=== PATIENT | female | born 1950 | race Caucasian/White ===

== ENCOUNTER → 2017-05-11 | Outpatient (CLI) | payer MEDICARE, OTHER ==
[~2017-05-11] MED LIST: ALBU90OI INH; ALBU90OI6 INH; AMIT50 PO; AZIT250 PO; Acetaminophen-1 EAC1 PO; Aerochamber1 EACH MC; CITA20 PO; CYCL10 PO; DIAZ2 PO; DIAZ5 PO; ESCI10; ESCI10 PO; ESCI20 PO; ESTR2 PO; FAMO20 PO; GUAI600T33 PO; HYDACE5 PO; HYDACE5325 PO; HYDR1TAB94 PO; IBUP600; IBUP800 PO; LEVO-T100 MCG; LEVO750 PO; LEVSOD100; LEVSOD150 PO; LORA1 PO; MECL25 PO; METO10 PO; NAPR375 PO; NAPR500 PO; ONDA4 PO; ONDA4ODT MM; PROM25 PO; Percocet 5-3251 EACH PO; Prednisone20 MG PO; QUET25 PO; RXHYD5325 PO; RXHYDACE PO; RXONDA4ODT MM; SUCR1 PO; Vibramycin100 MG PO; Zithromax250 MG PO; Zofran Odt4 MG SL
== END ==
LOC: LAB EV 13:08 → LAB SHORT 13:08
DX: S21.201A Unspecified open wound of right back wall of thorax without penetration into thoracic cavity, initial encounter (principal)
CPT/HCPCS: 87070; 87075; 87077; 87147; 87186; 87205

== ENCOUNTER 2017-06-24 16:52 | Emergency (ER) | payer MEDICARE, OTHER ==
[~2017-06-24] VITALS: Ht 165.1 cm; Wt 72.6 kg
[2017-06-24] MEDS ORDERED: TRAZ100 (17:03)
[2017-06-24] MEDS ORDERED: Norco 5-325 Ta1 EACH PO (18:12)
[2017-06-24] MEDS ORDERED: CRUTCH2 XX (18:12)
== END 2017-06-24 18:34 | disposition home or self-care (01) ==
LOC: ER 16:52
DX: S90.31XA Contusion of right foot, initial encounter (principal); I10 Essential (primary) hypertension; J44.9 Chronic obstructive pulmonary disease, unspecified; E03.9 Hypothyroidism, unspecified; F32.9 Major depressive disorder, single episode, unspecified; F17.210 Nicotine dependence, cigarettes, uncomplicated; Z79.899 Other long term (current) drug therapy; W20.8XXA Other cause of strike by thrown, projected or falling object, initial encounter
CPT/HCPCS: 73630; 96374; 99284; J3010

== ENCOUNTER 2020-01-03 09:58 | Emergency (ER) | payer MEDICARE, OTHER ==
[~2020-01-03] VITALS: Ht 165.1 cm; Wt 77.1 kg
[~2020-01-03 09:58] MED LIST changes: +CRUTCH2 XX; +Norco 5-325 Ta1 EACH PO; +TRAZ100
== END 2020-01-03 13:07 | disposition home or self-care (01) ==
LOC: ER 09:58
DX: T84.84XA Pain due to internal orthopedic prosthetic devices, implants and grafts, initial encounter (principal); F17.210 Nicotine dependence, cigarettes, uncomplicated; E03.9 Hypothyroidism, unspecified; F32.9 Major depressive disorder, single episode, unspecified; Z79.899 Other long term (current) drug therapy
CPT/HCPCS: 72020; 99283-25

== ENCOUNTER 2022-01-11 08:55 | Day surgery (SDC) | payer MEDICARE, OTHER ==
[~2022-01-11] VITALS: Ht 165.1 cm; Wt 68.0 kg
[2022-01-11] MEDS ORDERED: DRAMAMINE25 M3 PO (11:03)
[2022-01-11] MEDS ORDERED: METOPROLOL TART25 MG PO (11:04)
[2022-01-11] MEDS ORDERED: DICLOFENAC SOD100 G1 TOP (11:04)
[2022-01-11] MEDS ORDERED: MELO7.5 PO (11:04)
[2022-01-11] MEDS ORDERED: Vitamin D1000 UNI1 PO (11:05)
[2022-01-11] MEDS ORDERED: Hydroxychloroq200 MG PO (11:05)
--- NOTE | 2022-01-11 11:12 | NUR ---
Ambulatory in Day Surgery. Patient confirms NPO status and agrees with scheduled surgery. Pre-Op teaching done. Pt verbalizes understanding. Patient states colon prep results clear. Patient States Post-Procedure ride home has been arranged. HEART RATE OF 42-48, CONSISTENTLY AROUND 44BPM. HYPERTENSIVE. PT DENIES ANY DISCOMFORT OR SYMPTOMS; STS BP HAS BEEN HIGH & IS PLANNING TO MAKE AN APPOINTMENT WITH HER TODDLER NANNY. DR. ENCARNACION NOTIFIED.
--- NOTE | 2022-01-11 11:25 | NUR ---
01/11/22 1[address] [facility] HISTORY, CHART, MEDICATIONS AND ALLERGIES REVIEWED BEFORE START OF PROCEDURE. PATIENT CONFIRMS NPO STATUS AND AGREES WITH SCHEDULED PROCEDURE. 3-LEAD EKG REVIEWED WITH PHYSICIAN PRIOR TO START OF PROCEDURE. MONITOR INTACT WITH CONTINUOUS PULSE OXIMETRY,CAPNOGRAPHY, 3-LEAD EKG, INTERMITTENT BP. SUPPLEMENTAL O2 TO BE TITRATED THROUGHOUT PROCEDURE TO MAINTAIN O2 SATURATION ABOVE 90%. PATIENT DETERMINED TO BE ASA APPROPRIATE FOR PROPOFOL SEDATION PRIOR TO START OF PROCEDURE BY
--- NOTE | 2022-01-11 12:50 | NUR ---
pt ready to discharge home but unable to get ahold of ride, hospital volunteer will sit with pt and have ride sign discharge when ups driver picks up pt. pt denies any concerns or needs at this time. discharge folder given to pt
== END 2022-01-11 23:36 | disposition home or self-care (01) ==
LOC: ORSCMMR 08:55 → ORD 10:30 → ORSCMMR 23:36
PROVIDERS: Internal Medicine Gastroenterology
PROC: 0DBL8ZX Excision of Transverse Colon, Via Natural or Artificial Opening Endoscopic, Diagnostic (ICD-10-PCS; principal; 2022-01-11 10:30)
PROC: 0DBK8ZX Excision of Ascending Colon, Via Natural or Artificial Opening Endoscopic, Diagnostic (ICD-10-PCS; principal; 2022-01-11 10:30)
DX: Z12.11 Encounter for screening for malignant neoplasm of colon (principal); Z86.010 Personal history of colon polyps; D12.3 Benign neoplasm of transverse colon; D12.2 Benign neoplasm of ascending colon; K57.30 Diverticulosis of large intestine without perforation or abscess without bleeding; K64.4 Residual hemorrhoidal skin tags; E03.9 Hypothyroidism, unspecified; F32.A Depression, unspecified; I10 Essential (primary) hypertension; Z87.891 Personal history of nicotine dependence; Z79.899 Other long term (current) drug therapy
CPT/HCPCS: 88305; J0461; J2250; J2405; J2704; J7120

== ENCOUNTER 2022-05-26 21:28 | Emergency (ER) | payer MEDICARE, OTHER ==
[~2022-05-26] VITALS: Ht 165.1 cm; Wt 68.5 kg
[~2022-05-26 21:28] MED LIST changes: +DICLOFENAC SOD100 G1 TOP; +DRAMAMINE25 M3 PO; +Hydroxychloroq200 MG PO; +MELO7.5 PO; +METOPROLOL TART25 MG PO; +Vitamin D1000 UNI1 PO
[2022-05-26 21:33] VITALS: BP 155/68
[2022-05-26] MEDS ORDERED: CYCL10 PO (23:15)
[2022-05-26] MEDS ORDERED: LIDO700A20 TOP (23:15)
== END 2022-05-26 23:32 | disposition home or self-care (01) ==
LOC: ER 21:28
DX: M54.16 Radiculopathy, lumbar region (principal); G89.29 Other chronic pain; Z79.899 Other long term (current) drug therapy; F17.210 Nicotine dependence, cigarettes, uncomplicated; E03.9 Hypothyroidism, unspecified
CPT/HCPCS: 96374; 99284-25; A9270; J1885

== ENCOUNTER 2022-08-29 18:58 | Emergency (ER) | payer MEDICARE, OTHER ==
[~2022-08-29] VITALS: Ht 165.1 cm; Wt 72.6 kg
[~2022-08-29 18:58] MED LIST changes: +LIDO700A20 TOP
[2022-08-29 19:00] VITALS: BP 171/84
== END 2022-08-29 20:55 | disposition home or self-care (01) ==
LOC: ER 18:58
DX: S06.0X9A Concussion with loss of consciousness of unspecified duration, initial encounter (principal); S16.1XXA Strain of muscle, fascia and tendon at neck level, initial encounter; S29.012A Strain of muscle and tendon of back wall of thorax, initial encounter; W18.30XA Fall on same level, unspecified, initial encounter; F17.210 Nicotine dependence, cigarettes, uncomplicated; Z79.899 Other long term (current) drug therapy; Z87.891 Personal history of nicotine dependence
CPT/HCPCS: 70450; 72070; 72125; 99285-25

== ENCOUNTER → 2022-09-03 | Outpatient (CLI) | payer MEDICARE, OTHER ==
[2022-09-03 19:52] LABS: BASOPHILS ABSOLUTE AUTO 0.06 K/mm3 (0.00-0.23); BASOPHILS PERCENT AUTO 1 % (0-2); EOSINOPHILS ABSOLUTE AUTO 0.22 K/mm3 (0.00-0.68); EOSINOPHILS PERCENT AUTO 4 % (0-6); Hematocrit 43.7 % (33.0-51.0); IMMATURE GRAN ABSOLUTE AUTO 0.04 K/mm3 (0.00-0.10); IMMATURE GRAN PERCENT AUTO 1 % (0-1); LYMPHOCYTES ABSOLUTE AUTO 1.87 K/mm3 (0.84-5.20); LYMPHOCYTES PERCENT AUTO 33 % (21-46); MONOCYTES ABSOLUTE AUTO 0.44 K/mm3 (0.16-1.47); MONOCYTES PERCENT AUTO 8 % (4-13); Mean Corpuscular HGB 30.6 pg (26.0-34.0); Mean Corpuscular HGB Conc 34.3 g/dL (31.5-36.5); Mean Corpuscular Volume 89 fL (80-100); NEUTROPHILS ABSOLUTE AUTO 2.98 K/mm3 (1.96-9.15); NEUTROPHILS PERCENT AUTO 53 % (41-73); Platelet Count 141 K/mm3 (150-400); RDW Coefficient Variation 12.4 % (11.7-14.2); RDW Standard Deviation 40.7 fL (35.1-46.3); White Blood Cell Count 5.61 K/mm3 (4.00-11.30)
[2022-09-03 19:54] LABS: Mean Platelet Volume 14.1 fL (9.1-12.4)
[2022-09-03 21:00] LABS: Alanine Aminotransfer (ALT/SGP 16 U/L (12-78); Albumin, Blood 3.5 g/dL (3.4-5.0); Albumin/Globulin Ratio 0.6 (0.8-1.8); Alk Phos 88 U/L (50-136); Anion Gap 5 mmol/L (6-16); Bilirubin, Total 0.4 mg/dL (0.1-1.0); Blood Urea Nitrogen 16 mg/dL (8-24); CHOL/HDL RATIO 4.6; CO2, Blood 27 mmol/L (21-32); Calcium, Blood 9.1 mg/dL (8.5-10.1); Chloride, Blood 107 mmol/L (98-108); Cholesterol 161 mg/dL (50-200); Globulin, Blood 5.5 g/dL (2.2-4.0); Glucose, Blood 85 mg/dL (70-99); HDL Cholesterol 35 mg/dL (>39); LDL/HDL RATIO 2.8; Low Density Lipoprotein Chol 96 mg/dL (0-110); Potassium, Blood 3.8 mmol/L (3.5-5.5); Sodium, Blood 139 mmol/L (136-145); Triglycerides 148 mg/dL (30-160); Very Low Density Lipoprot Chol 29 mg/dL (6-32)
[2022-09-03 21:07] LABS: Aspartate Aminotrans (AST/SGOT 23 U/L (12-37); Bun/Creatinine Ratio 15.8 (12.0-20.0); Creatinine, Blood 1.01 mg/dL (0.40-1.00); Glomerular Filtration Rate 60 (60-)
== END | disposition home or self-care (01) ==
LOC: LAB 12:00 → LAB SHORT 12:00
PROVIDERS: Family Medicine
DX: E03.9 Hypothyroidism, unspecified (principal); E78.5 Hyperlipidemia, unspecified; I10 Essential (primary) hypertension
CPT/HCPCS: 80053; 80061; 84439; 84443; 85025

== ENCOUNTER → 2023-08-14 | Outpatient (CLI) | payer MEDICARE, OTHER ==
[2023-08-14 15:57] LABS: BASOPHILS ABSOLUTE AUTO 0.07 K/mm3 (0.00-0.23); BASOPHILS PERCENT AUTO 1 % (0-2); EOSINOPHILS ABSOLUTE AUTO 0.12 K/mm3 (0.00-0.68); EOSINOPHILS PERCENT AUTO 2 % (0-6); Hematocrit 41.5 % (33.0-51.0); Hemoglobin 14.1 g/dL (11.5-16.0); IMMATURE GRAN PERCENT AUTO 0 % (0-1); LYMPHOCYTES ABSOLUTE AUTO 1.75 K/mm3 (0.84-5.20); LYMPHOCYTES PERCENT AUTO 34 % (21-46); MONOCYTES ABSOLUTE AUTO 0.49 K/mm3 (0.16-1.47); MONOCYTES PERCENT AUTO 10 % (4-13); Mean Corpuscular HGB 30.5 pg (26.0-34.0); Mean Corpuscular Volume 90 fL (80-100); Mean Platelet Volume 12.9 fL (9.1-12.4); NEUTROPHILS ABSOLUTE AUTO 2.75 K/mm3 (1.96-9.15); NEUTROPHILS PERCENT AUTO 53 % (41-73); Platelet Count 140 K/mm3 (150-400); RDW Coefficient Variation 13.2 % (11.7-14.2); RDW Standard Deviation 42.6 fL (35.1-46.3); Red Blood Cell Count 4.62 M/mm3 (3.80-5.20); White Blood Cell Count 5.18 K/mm3 (4.00-11.30)
[2023-08-14 16:09] LABS: Albumin, Blood 3.2 g/dL (3.4-5.0); Albumin/Globulin Ratio 0.6 (0.8-1.8); Bilirubin, Total 0.6 mg/dL (0.1-1.0); Bun/Creatinine Ratio 9.7 (12.0-20.0); Calcium, Blood 9.1 mg/dL (8.5-10.1); Creatinine, Blood 1.24 mg/dL (0.40-1.00); Globulin, Blood 5.7 g/dL (2.2-4.0); Potassium, Blood 3.5 mmol/L (3.5-5.5); Total Protein, Blood 8.9 g/dL (6.4-8.2)
== END ==
LOC: LAB 15:50 → LAB SHORT 15:50
PROVIDERS: Physician Assistant
DX: I10 Essential (primary) hypertension (principal)
CPT/HCPCS: 80053; 84484; 85025

== ENCOUNTER 2023-09-20 10:25 | Day surgery (SDC) | payer MEDICARE, OTHER ==
[~2023-09-20] VITALS: Ht 165.1 cm; Wt 78.9 kg
[~2023-09-20 10:25] MED LIST changes: +Lactated Ringer's 1,000 ML IV ONE
[2023-09-20] MEDS ORDERED: CeFAZolin Sodium 2,000 MG VIAL ONE (12:07)
[2023-09-20] MEDS ORDERED: NS 50 ML IV ONE (12:08)
[2023-09-20] MEDS ORDERED: HYDHCL25 (12:38)
[2023-09-20] MEDS ORDERED: AMLODIPINE BESYL5 MG PO (12:41)
[2023-09-20] MEDS ORDERED: Lactated Ringer's 1,000 ML IV ONE (12:50)
[2023-09-20] MEDS ORDERED: propofoL 20 ML IV ONE (13:08)
[2023-09-20] MEDS ORDERED: FentaNYL Citrate 50 MCG/ML 2 ML Injection ONE (13:45)
[2023-09-20] MEDS ORDERED: ePHEDrine Sulfate 50 MG/ML 1ML Injection ONE (13:56)
[2023-09-20] MEDS ORDERED: Atropine Sulfate 0.4 MG/1 ML Vial ONE (13:59)
[2023-09-20] MEDS ORDERED: Lidocaine HCl 2% 20 ML MDV INJ ONE (14:01)
[2023-09-20] MEDS ORDERED: Ondansetron HCl 2 MG / ML 2ML Vial ONE (14:07)
[2023-09-20] MEDS ORDERED: Dexamethasone Sod Phos 10 MG/ML 1ML VIAL ONE (14:07)
[2023-09-20] MEDS ORDERED: Metoclopramide HCl 5MG / ML 2ML Vial ONE (14:07)
[2023-09-20] MEDS ORDERED: EPINEPhrine HCl 1 MG/ML 1ML Amp XX ONE (14:19)
[2023-09-20] MEDS ORDERED: Ropivacaine 0.5% HCl/Pf 5 MG/ML 20ML VIAL INJ ONE (14:19)
[2023-09-20 15:20] VITALS: BP 118/76
== END 2023-09-20 15:45 | disposition home or self-care (01) ==
LOC: ORSCSDS 10:25
PROVIDERS: Podiatrist Foot & Ankle Surgery
PROC: 0QBQ0ZZ Excision of Right Toe Phalanx, Open Approach (ICD-10-PCS; principal; 2023-09-20 12:45)
PROC: 0L8V0ZZ Division of Right Foot Tendon, Open Approach (ICD-10-PCS; principal; 2023-09-20 12:45)
PROC: 0QBN0ZZ Excision of Right Metatarsal, Open Approach (ICD-10-PCS; principal; 2023-09-20 12:45)
PROC: 0QSN04Z Reposition Right Metatarsal with Internal Fixation Device, Open Approach (ICD-10-PCS; principal; 2023-09-20 12:45)
DX: M20.21 Hallux rigidus, right foot (principal); M89.8X7 Other specified disorders of bone, ankle and foot; M20.41 Other hammer toe(s) (acquired), right foot; I12.9 Hypertensive chronic kidney disease with stage 1 through stage 4 chronic kidney disease, or unspecified chronic kidney disease; N18.9 Chronic kidney disease, unspecified; E03.9 Hypothyroidism, unspecified; F17.210 Nicotine dependence, cigarettes, uncomplicated; Z79.899 Other long term (current) drug therapy
CPT/HCPCS: J0171; J0461; J0690; J1100; J2405; J2704; J2765; J2795; J3010; J7120

== ENCOUNTER 2023-09-26 16:25 | Inpatient (IN) | payer MEDICARE, OTHER ==
[~2023-09-26] VITALS: Ht 165.1 cm; Wt 80.3 kg
[~2023-09-26 16:25] MED LIST changes: +AMLODIPINE BESYL5 MG PO; +HYDHCL25; -Lactated Ringer's 1,000 ML IV ONE
[2023-09-26 17:40] LABS: BASOPHILS ABSOLUTE AUTO 0.05 K/mm3 (0.00-0.23); BASOPHILS PERCENT AUTO 0 % (0-2); EOSINOPHILS ABSOLUTE AUTO 0.04 K/mm3 (0.00-0.68); EOSINOPHILS PERCENT AUTO 0 % (0-6); Hematocrit 43.4 % (33.0-51.0); Hemoglobin 15.2 g/dL (11.5-16.0); IMMATURE GRAN ABSOLUTE AUTO 0.07 K/mm3 (0.00-0.10); IMMATURE GRAN PERCENT AUTO 1 % (0-1); LYMPHOCYTES PERCENT AUTO 18 % (21-46); MONOCYTES ABSOLUTE AUTO 0.76 K/mm3 (0.16-1.47); MONOCYTES PERCENT AUTO 7 % (4-13); Mean Corpuscular HGB 30.6 pg (26.0-34.0); Mean Corpuscular Volume 87 fL (80-100); Mean Platelet Volume 12.9 fL (9.1-12.4); NEUTROPHILS ABSOLUTE AUTO 8.24 K/mm3 (1.96-9.15); NEUTROPHILS PERCENT AUTO 74 % (41-73); Platelet Count 208 K/mm3 (150-400); RDW Coefficient Variation 12.8 % (11.7-14.2); RDW Standard Deviation 40.3 fL (35.1-46.3); Red Blood Cell Count 4.97 M/mm3 (3.80-5.20); White Blood Cell Count 11.16 K/mm3 (4.00-11.30)
[2023-09-26 17:52] LABS: Albumin, Blood 3.5 g/dL (3.4-5.0); Albumin/Globulin Ratio 0.7 (0.8-1.8); Bun/Creatinine Ratio 21.9 (12.0-20.0); Calcium, Blood 9.1 mg/dL (8.5-10.1); Creatinine, Blood 1.14 mg/dL (0.40-1.00); Globulin, Blood 5.2 g/dL (2.2-4.0); Potassium, Blood 3.1 mmol/L (3.5-5.5); Total Protein, Blood 8.7 g/dL (6.4-8.2)
[2023-09-26] MEDS ORDERED: Potassium Chl 20MEQ/Water100ML 100 ML IV ONE (18:20)
[2023-09-26] MEDS ORDERED: Potassium Chloride 20 MEQ TabCR PO ONE (18:20)
[2023-09-26 18:55] LABS: Magnesium, Blood 2.2 mg/dL (1.6-2.4)
[2023-09-26] MEDS ORDERED: NS 1,000 ML IV SCH ×2 (19:00→20:00)
[2023-09-26] MEDS ORDERED: NS 1,000 ML IV ONE (19:01)
[2023-09-26] MEDS ORDERED: CefTRIAXone Sodium 1,000 MG in NS 50 ML IV ONE (19:05)
[2023-09-26] MEDS ORDERED: MetroNIDAZOLE 500MG/NS 100 ml 100 ML IV ONE (19:05)
[2023-09-26 19:11] LABS: International Normalized Ratio 1.13
[2023-09-26] MEDS ORDERED: Acetaminophen 325 MG TABLET PO PRN (19:50)
[2023-09-26] MEDS ORDERED: Ondansetron HCl 2 MG / ML 2ML Vial IV PRN (19:55)
[2023-09-26] MEDS ORDERED: Lactobacil 2-S.Thermo-Bifido 1 1 Cap PO SCH (21:00)
[2023-09-26] MEDS ORDERED: EUTHYROX125 MCG PO (21:10)
[2023-09-26] MEDS ORDERED: CELE200 PO (21:10)
[2023-09-26] MEDS ORDERED: Norco 5-325 Ta1 EACH PO (21:12)
[2023-09-26 22:25] VITALS: BP 137/81
[2023-09-27] MEDS ORDERED: MetroNIDAZOLE 500MG/NS 100 ml 100 ML IV SCH (02:00)
[2023-09-27 04:31] VITALS: BP 108/58
[2023-09-27 05:54] LABS: BASOPHILS ABSOLUTE AUTO 0.06 K/mm3 (0.00-0.23); BASOPHILS PERCENT AUTO 1 % (0-2); EOSINOPHILS PERCENT AUTO 1 % (0-6); Hemoglobin 13.6 g/dL (11.5-16.0); IMMATURE GRAN ABSOLUTE AUTO 0.01 K/mm3 (0.00-0.10); IMMATURE GRAN PERCENT AUTO 0 % (0-1); LYMPHOCYTES ABSOLUTE AUTO 1.62 K/mm3 (0.84-5.20); LYMPHOCYTES PERCENT AUTO 21 % (21-46); MONOCYTES ABSOLUTE AUTO 0.81 K/mm3 (0.16-1.47); MONOCYTES PERCENT AUTO 11 % (4-13); Mean Corpuscular HGB 30.4 pg (26.0-34.0); Mean Corpuscular Volume 90 fL (80-100); NEUTROPHILS ABSOLUTE AUTO 5.07 K/mm3 (1.96-9.15); NEUTROPHILS PERCENT AUTO 66 % (41-73); Platelet Count 157 K/mm3 (150-400); RDW Coefficient Variation 13.2 % (11.7-14.2); RDW Standard Deviation 42.7 fL (35.1-46.3); Red Blood Cell Count 4.47 M/mm3 (3.80-5.20); White Blood Cell Count 7.67 K/mm3 (4.00-11.30)
[2023-09-27] MEDS ORDERED: Levothyroxine Sodium 0.125 MG Tab PO SCH (06:00)
[2023-09-27 06:18] LABS: Albumin, Blood 2.9 g/dL (3.4-5.0); Albumin/Globulin Ratio 0.6 (0.8-1.8); Bilirubin, Total 0.5 mg/dL (0.1-1.0); Calcium, Blood 8.2 mg/dL (8.5-10.1); Globulin, Blood 4.5 g/dL (2.2-4.0); Potassium, Blood 3.7 mmol/L (3.5-5.5); Total Protein, Blood 7.4 g/dL (6.4-8.2)
[2023-09-27 07:42] VITALS: BP 115/73
[2023-09-27] MEDS ORDERED: AmLODIPine Besylate 5 MG Tab PO SCH (09:00)
[2023-09-27] MEDS ORDERED: Enoxaparin 40 MG/0.4 ML SYR SC SCH (09:00)
[2023-09-27] MEDS ORDERED: Citalopram Hydrobromide 20 MG Tab PO SCH (09:00)
[2023-09-27 15:50] VITALS: BP 131/74
--- NOTE | 2023-09-27 17:18 | NUR ---
END OF SHIFT SUMMARY: A&Ox4. PLEASANT AND COOPERATIVE WITH CARE. CALLS APPROPRIATELY AND IS ABLE TO ADVOCATE NEEDS EFFECTIVELY. SBA c FWW D/T WEAKNESS; WORKED WITH PT TODAY. MEDS WHOLE WITH FLUIDS. BLOOD-STREAKED BM TODAY; CONTINUE WITH CLEAR LIQUID DIET. NO C/O PAIN OR DISCOMFORT. BED IN LOWEST POSITION. CALL LIGHT WITHIN REACH. ALL NEEDS MET. REPORT TO ONCOMING RN.
[2023-09-27 19:33] VITALS: BP 122/69
[2023-09-27] MEDS ORDERED: NS 250 ML IV PRN (20:40)
[2023-09-27] MEDS ORDERED: CefTRIAXone Sodium 1,000 MG in NS 100 ML IV SCH (21:00)
[2023-09-28 03:35] VITALS: BP 125/68
--- NOTE | 2023-09-28 05:27 | NUR ---
SHIFT SUMMARY: Pt is admitted for sigmoid diverticulitis and is a full code. Is alert and able to make needs known. ADLs have been SBA. denies pain or discomfort when asked.
[2023-09-28 07:30] VITALS: BP 124/75
--- NOTE | 2023-09-28 17:04 | NUR ---
SHIFT SUMMARY PT RESTING QUIETLY AT START OF SHIFT. WOKE EASILY FOR REPORT. PT ADMITTED FOR DIVERTICULITIS ON CL DIET AT START OF SHIFT. PT REPORTED SOME PAIN WITH BREAKFAST. DR RANDLE IN TO SEE PT AND DISCUSS PLAN OF CARE. PT LATER REQUESTED REG FOOD, REPORTING THAT SHE CANNOT TOLERATE CL ANYMORE. DR RANDLE NOTIFIED. DIET ADVANCED PER PT REQUEST. PT INSTRUCTED TO EAT SM AMT AND SLOWLY TO START WITH. PT VERBALIZED UNDERSTANDING. UP TO BTHRM INDEPENDENTLY. SEVERAL FAMILY IN TO VISIT DURING THE DAY. QUESTIONS ANSWERED. DENIED FURTHER NEEDS TO PRESENT. CALL LT IN REACH.
[2023-09-28 19:27] VITALS: BP 117/72
[2023-09-29 05:34] VITALS: BP 120/71
[2023-09-29 06:06] LABS: BASOPHILS ABSOLUTE AUTO 0.07 K/mm3 (0.00-0.23); BASOPHILS PERCENT AUTO 1 % (0-2); EOSINOPHILS ABSOLUTE AUTO 0.25 K/mm3 (0.00-0.68); EOSINOPHILS PERCENT AUTO 5 % (0-6); Hematocrit 39.2 % (33.0-51.0); Hemoglobin 13.3 g/dL (11.5-16.0); IMMATURE GRAN ABSOLUTE AUTO 0.02 K/mm3 (0.00-0.10); IMMATURE GRAN PERCENT AUTO 0 % (0-1); LYMPHOCYTES PERCENT AUTO 20 % (21-46); MONOCYTES ABSOLUTE AUTO 0.73 K/mm3 (0.16-1.47); MONOCYTES PERCENT AUTO 15 % (4-13); Mean Corpuscular HGB 30.2 pg (26.0-34.0); Mean Corpuscular HGB Conc 33.9 g/dL (31.5-36.5); Mean Corpuscular Volume 89 fL (80-100); Mean Platelet Volume 12.4 fL (9.1-12.4); NEUTROPHILS ABSOLUTE AUTO 2.85 K/mm3 (1.96-9.15); NEUTROPHILS PERCENT AUTO 58 % (41-73); Platelet Count 131 K/mm3 (150-400); RDW Coefficient Variation 13.2 % (11.7-14.2); RDW Standard Deviation 43.1 fL (35.1-46.3); White Blood Cell Count 4.92 K/mm3 (4.00-11.30)
[2023-09-29 06:31] LABS: Bun/Creatinine Ratio 26.1 (12.0-20.0); Calcium, Blood 8.4 mg/dL (8.5-10.1); Creatinine, Blood 0.81 mg/dL (0.40-1.00); Potassium, Blood 3.5 mmol/L (3.5-5.5)
--- NOTE | 2023-09-29 06:43 | NUR ---
SHIFT SUMMARY: Pt is admitted for sigmoid diverticulitis and is a full code. Is alert and able to make needs known. ADLs have been SBA. denies pain or discomfort when asked. Did have a regular meal with dinner. Had no complaints through the night.
[2023-09-29 07:15] VITALS: BP 132/72
[2023-09-29 09:17] VITALS: BP 112/61
[2023-09-29 15:41] VITALS: BP 113/64
--- NOTE | 2023-09-29 18:23 | NUR ---
SHIFT SUMMARY PATIENT UP TO BATHROOM AND IN ROOM WITH SBA AND WALKER. DID HAVE EPISODE OF SHAKING AND PALENESS WHILE HAVING BOWEL MOVEMENT THIS AM, VITALS WNL AND RECOVERED WITHIN MINUTES OF RESTING IN BED. TOLERATING REG DIET MODERATELY WELL, SOME GAS. ABLE TO MAKE NEEDS KNOWN. CALL LIGHT IN REACH, CARES ONGOING.
[2023-09-29 19:52] VITALS: BP 109/76
[2023-09-30 02:19] VITALS: BP 123/62
[2023-09-30 05:16] LABS: BASOPHILS ABSOLUTE AUTO 0.06 K/mm3 (0.00-0.23); BASOPHILS PERCENT AUTO 1 % (0-2); EOSINOPHILS ABSOLUTE AUTO 0.18 K/mm3 (0.00-0.68); EOSINOPHILS PERCENT AUTO 4 % (0-6); Hematocrit 37.9 % (33.0-51.0); Hemoglobin 12.9 g/dL (11.5-16.0); IMMATURE GRAN ABSOLUTE AUTO 0.01 K/mm3 (0.00-0.10); IMMATURE GRAN PERCENT AUTO 0 % (0-1); LYMPHOCYTES ABSOLUTE AUTO 1.24 K/mm3 (0.84-5.20); LYMPHOCYTES PERCENT AUTO 27 % (21-46); MONOCYTES ABSOLUTE AUTO 0.81 K/mm3 (0.16-1.47); MONOCYTES PERCENT AUTO 18 % (4-13); Mean Corpuscular HGB 30.6 pg (26.0-34.0); Mean Corpuscular Volume 90 fL (80-100); Mean Platelet Volume 12.3 fL (9.1-12.4); NEUTROPHILS ABSOLUTE AUTO 2.27 K/mm3 (1.96-9.15); NEUTROPHILS PERCENT AUTO 50 % (41-73); Platelet Count 133 K/mm3 (150-400); RDW Coefficient Variation 13.4 % (11.7-14.2); RDW Standard Deviation 43.7 fL (35.1-46.3); Red Blood Cell Count 4.21 M/mm3 (3.80-5.20); White Blood Cell Count 4.57 K/mm3 (4.00-11.30)
[2023-09-30 05:43] LABS: Bun/Creatinine Ratio 21.6 (12.0-20.0); Calcium, Blood 8.2 mg/dL (8.5-10.1); Creatinine, Blood 0.93 mg/dL (0.40-1.00); Potassium, Blood 3.4 mmol/L (3.5-5.5)
--- NOTE | 2023-09-30 06:49 | NUR ---
SHIFT SUMMARY: Pt is admitted for sigmoid diverticulitis and is a full code. Is alert and able to make needs known. ADLs have been SBA. denies pain or discomfort when asked. Had no complaints through the night with eating regular food.
[2023-09-30 07:39] VITALS: BP 130/66
[2023-09-30 15:24] VITALS: BP 108/94
--- NOTE | 2023-09-30 17:25 | NUR ---
SHIFT SUMMARY PT AOX4, INDEPENDENT IN THE ROOM. BOOT TO R FOOT THAT WAS PRESENT PRIOR TO ADMIT. NO COMPLAINTS FROM THE PT THIS SHIFT. SHE DOES CALL AND MAKE HER NEEDS KNOWN. PLAN IS FOR DISCHARGE TOMORROW. CALL LIGHT WITHIN REACH, BED LOCKED AND IN THE LOWEST POSITION. WILL REPORT TO ONCOMING NURSE.
[2023-09-30] MEDS ORDERED: Omeprazole 20 MG CapCR PO SCH (19:00)
[2023-09-30] MEDS ORDERED: Potassium Chloride 20 MEQ/15 ML UDC PO SCH (19:00)
[2023-09-30 19:15] VITALS: BP 114/67
[2023-10-01 02:29] VITALS: BP 113/74
[2023-10-01 05:23] LABS: BASOPHILS ABSOLUTE AUTO 0.04 K/mm3 (0.00-0.23); BASOPHILS PERCENT AUTO 1 % (0-2); EOSINOPHILS PERCENT AUTO 4 % (0-6); Hematocrit 38.7 % (33.0-51.0); Hemoglobin 13.4 g/dL (11.5-16.0); IMMATURE GRAN ABSOLUTE AUTO 0.01 K/mm3 (0.00-0.10); IMMATURE GRAN PERCENT AUTO 0 % (0-1); LYMPHOCYTES ABSOLUTE AUTO 1.14 K/mm3 (0.84-5.20); LYMPHOCYTES PERCENT AUTO 24 % (21-46); MONOCYTES ABSOLUTE AUTO 0.73 K/mm3 (0.16-1.47); MONOCYTES PERCENT AUTO 15 % (4-13); Mean Corpuscular HGB Conc 34.6 g/dL (31.5-36.5); Mean Corpuscular Volume 90 fL (80-100); Mean Platelet Volume 12.6 fL (9.1-12.4); NEUTROPHILS ABSOLUTE AUTO 2.74 K/mm3 (1.96-9.15); NEUTROPHILS PERCENT AUTO 56 % (41-73); Platelet Count 112 K/mm3 (150-400); RDW Coefficient Variation 13.3 % (11.7-14.2); RDW Standard Deviation 43.8 fL (35.1-46.3); Red Blood Cell Count 4.32 M/mm3 (3.80-5.20); White Blood Cell Count 4.86 K/mm3 (4.00-11.30)
--- NOTE | 2023-10-01 05:33 | NUR ---
SHIFT SUMMARY 73 YR F ADMITTED ON 09/27/23. FULL CODE. NO ACUTE CHANGES THIS SHIFT. PT REQUESTED TYLENOL FOR RIGHT SHOULDER PAIN. SHE IS HOPING FOR DISCHARGE TODAY SO SHE CAN SLEEP IN HER OWN BED TONIGHT. SHE IS A&O X 4 AND PLEASANT AND COOPERATIVE WITH CARE. BED IN LOW POSITION AND CALL LIGHT IN REACH.
[2023-10-01 06:04] LABS: Albumin, Blood 2.9 g/dL (3.4-5.0); Albumin/Globulin Ratio 0.7 (0.8-1.8); Bilirubin, Total 0.3 mg/dL (0.1-1.0); Bun/Creatinine Ratio 19.3 (12.0-20.0); Calcium, Blood 8.1 mg/dL (8.5-10.1); Creatinine, Blood 0.88 mg/dL (0.40-1.00); Globulin, Blood 4.2 g/dL (2.2-4.0); Potassium, Blood 3.3 mmol/L (3.5-5.5); Total Protein, Blood 7.1 g/dL (6.4-8.2)
[2023-10-01 07:40] VITALS: BP 118/76
[2023-10-01] MEDS ORDERED: CefTRIAXone Sodium 1,000 MG in NS 100 ML IV ONE (12:45)
[2023-10-01] MEDS ORDERED: MetroNIDAZOLE 500MG/NS 100 ml 100 ML IV ONE (12:45)
[2023-10-01 14:57] VITALS: BP 119/66
[2023-10-01] MEDS ORDERED: CELEXA40 M1 PO (15:19)
[2023-10-01] MEDS ORDERED: POTA20LUD PO (15:19)
[2023-10-01] MEDS ORDERED: CEFP200 PO (15:20)
[2023-10-01] MEDS ORDERED: METR500 PO (15:22)
[2023-10-01] MEDS ORDERED: MIRALAX17 GM PO (15:22)
[2023-10-01] MEDS ORDERED: DOCUZEN 8.6-501 EACH PO (15:22)
--- NOTE | 2023-10-01 15:40 | NUR ---
DISCHARGE NOTE PT DISCHARGED TO HOME, PICKED UP BY HIS FRIEND. IV REMOVED. DISCHARGE EDUCATION AND INFORMATION PROVIDED. MEDICATIONS FAXED TO THE PHARMACY OF HER CHOICE. DISCHARGE VOLUNTEER PICKED HER UP BY WC AND TOOK HER TO THE VEHICLE.
== END 2023-10-01 15:33 | disposition home health service (06) | DRG 392 ==
LOC: ER 16:25 → MEDS 16:26 → ENPENDDIS 10-01 13:25 → MEDS 10-01 15:33
PROVIDERS: Family Medicine; Family Medicine Adult Medicine; Internal Medicine; Student in an Organized Health Care Education/Training Program; ADMIT Student in an Organized Health Care Education/Training Program
DX: K57.32 Diverticulitis of large intestine without perforation or abscess without bleeding (principal); E87.6 Hypokalemia; E03.9 Hypothyroidism, unspecified; F32.A Depression, unspecified; I10 Essential (primary) hypertension; K59.09 Other constipation; F17.210 Nicotine dependence, cigarettes, uncomplicated; K08.109 Complete loss of teeth, unspecified cause, unspecified class; Z90.49 Acquired absence of other specified parts of digestive tract; Z79.890 Hormone replacement therapy; Z79.899 Other long term (current) drug therapy; Z98.890 Other specified postprocedural states; Z98.51 Tubal ligation status; Z90.89 Acquired absence of other organs
CPT/HCPCS: 36415; 71045; 74174; 80048; 80053; 82272; 83690; 83735; 84484; 85025; 85610; 93005; 93010; 96365-59; 96366; 96367-59; 96372; 96375-59; 96376; 97110; 97112; 97161; 97530-CQ; 99285-25; A9270; G0378; J0696; J1650; J3480; J7030; J7050; Q9967

== ENCOUNTER 2024-02-10 11:56 | Emergency (ER) | payer MEDICARE, OTHER ==
[~2024-02-10] VITALS: Ht 165.1 cm; Wt 74.8 kg
[~2024-02-10 11:56] MED LIST changes: +CEFP200 PO; +CELE200 PO; +CELEXA40 M1 PO; +DOCUZEN 8.6-501 EACH PO; +EUTHYROX125 MCG PO; +METR500 PO; +MIRALAX17 GM PO; +POTA20LUD PO
[2024-02-10] MEDS ORDERED: Ondansetron HCl 2 MG / ML 2ML Vial IV ONE (12:25)
[2024-02-10] MEDS ORDERED: NS 1,000 ML IV SCH (12:25)
[2024-02-10] MEDS ORDERED: Ipratropium/Albuterol SulF 2.5-0.5MG/3 ML Amp INH ONE (12:25)
[2024-02-10] MEDS ORDERED: Ketorolac Tromethamine 30mg Vial IV ONE (12:25)
[2024-02-10 13:00] LABS: CORONAVIRUS COVID-19 AG Negative (NEGATIVE); INFLUENZA A AG Positive (NEGATIVE); INFLUENZA B AG Negative (NEGATIVE)
[2024-02-10 13:06] LABS: BASOPHILS ABSOLUTE AUTO 0.02 K/mm3 (0.00-0.23); BASOPHILS PERCENT AUTO 0 % (0-2); EOSINOPHILS PERCENT AUTO 0 % (0-6); Hematocrit 40.3 % (33.0-51.0); IMMATURE GRAN ABSOLUTE AUTO 0.02 K/mm3 (0.00-0.10); IMMATURE GRAN PERCENT AUTO 0 % (0-1); LYMPHOCYTES PERCENT AUTO 17 % (21-46); MONOCYTES ABSOLUTE AUTO 0.26 K/mm3 (0.16-1.47); MONOCYTES PERCENT AUTO 4 % (4-13); Mean Corpuscular HGB 30.4 pg (26.0-34.0); Mean Corpuscular HGB Conc 34.7 g/dL (31.5-36.5); Mean Corpuscular Volume 87 fL (80-100); Mean Platelet Volume 12.8 fL (9.1-12.4); NEUTROPHILS ABSOLUTE AUTO 5.22 K/mm3 (1.96-9.15); NEUTROPHILS PERCENT AUTO 79 % (41-73); Platelet Count 118 K/mm3 (150-400); RDW Coefficient Variation 12.9 % (11.7-14.2); RDW Standard Deviation 41.1 fL (35.1-46.3); Red Blood Cell Count 4.61 M/mm3 (3.80-5.20); White Blood Cell Count 6.62 K/mm3 (4.00-11.30)
[2024-02-10 13:45] LABS: Albumin, Blood 3.2 g/dL (3.4-5.0); Albumin/Globulin Ratio 0.6 (0.8-1.8); Bilirubin, Total 0.6 mg/dL (0.1-1.0); Bun/Creatinine Ratio 15.4 (12.0-20.0); Calcium, Blood 8.5 mg/dL (8.5-10.1); Creatinine, Blood 1.04 mg/dL (0.40-1.00); Globulin, Blood 5.4 g/dL (2.2-4.0); Magnesium, Blood 1.9 mg/dL (1.6-2.4); Potassium, Blood 2.8 mmol/L (3.5-5.5); Total Protein, Blood 8.6 g/dL (6.4-8.2)
[2024-02-10] MEDS ORDERED: Potassium Chloride 20 MEQ TabCR PO ONE (16:45)
[2024-02-10] MEDS ORDERED: POTA20PAC PO (16:47)
[2024-02-10] MEDS ORDERED: ONDA4 PO (16:47)
[2024-02-10 16:55] VITALS: BP 129/75
== END 2024-02-10 17:07 | disposition home or self-care (01) ==
LOC: ER 11:56
PROVIDERS: Student in an Organized Health Care Education/Training Program
DX: J11.1 Influenza due to unidentified influenza virus with other respiratory manifestations (principal); E87.6 Hypokalemia; E03.9 Hypothyroidism, unspecified; F17.210 Nicotine dependence, cigarettes, uncomplicated; Z79.899 Other long term (current) drug therapy
CPT/HCPCS: 71046; 80053; 83735; 85025; 87428-QW; 93005; 93010; 99284-25; A9270